=== PATIENT | female | born 1995 | race Caucasian/White ===

== ENCOUNTER 2016-09-22 23:24 | Emergency (ER) | payer OTHER ==
[~2016-09-22] VITALS: Ht 172.7 cm; Wt 54.4 kg
[2016-09-22] MEDS ORDERED: PREN1PAK PO (23:37)
--- NOTE | 2016-09-23 01:40 | REPUSA ---
CLINICAL HISTORY: Pelvic pain. TECHNIQUE: Realtime sonographic images were obtained in multiple projections via TA approach. The exa mination was performed by the entertainment production professional and still images were submitted for interpretation. COMMENTS: Single, live intrauterine gestation. Unable presentation. motion was identified. heart ra te 144 beats per minute. Posterior placenta. Low-lying versus placenta previa. No evidence of placent al abruption. Amniotic fluid appears within normal limits. No maternal adnexal abnormality is noted. Estimated gestational age is 15 weeks and one day. Estimated delivery date one 03/16/2017. Estimated f etal weight 113 g. IMPRESSION: Single, live intrauterine gestation. No abnormality is seen. Thank you for your kind referral of this patient.
[2016-09-23 02:51] VITALS: BP 112/56
== END 2016-09-23 02:53 | disposition home or self-care (01) ==
LOC: M ED 09-23 00:51
DX: O20.0 Threatened abortion (principal); Z79.899 Other long term (current) drug therapy; Z3A.15 15 weeks gestation of pregnancy
CPT/HCPCS: 36415; 76811; 86850; 86900; 86901; 99282; J2790

== ENCOUNTER 2016-11-17 16:54 | Outpatient (CLI) | payer OTHER ==
[~2016-11-17] VITALS: Ht 152.4 cm; Wt 55.0 kg
[~2016-11-17 16:54] MED LIST: PREN1PAK PO
[2016-11-17 17:13] VITALS: BP 103/67
[2016-11-17 17:18] VITALS: BP 108/72
[2016-11-17] MEDS ORDERED: LR 1,000 ML IV SCH (17:29)
[2016-11-17] MEDS ORDERED: NIFEdipine 10 MG CAP PO SCH (17:30)
[2016-11-17 17:44] VITALS: BP 109/58
[2016-11-17] MEDS ORDERED: LR 1,000 ML IV ONE (17:45)
[2016-11-17] MEDS: NIFEdipine 10 MG CAP PO SCH ×3 (17:55→18:37)
[2016-11-17] MEDS ORDERED: BETAMETHASONE SOLUSPAN 6MG/ML INJ 5ML (J0702) IM SCH (18:00)
[2016-11-17 18:17] LABS: MEAN CORPUSCULAR HGB CONC 35.6 g/dl (32.0-36.5); MEAN CORPUSCULAR VOLUME 89.6 fl (80.0-96.0); RED CELL DISTRIBUTION WIDTH 12.7 % (11.5-14.5)
[2016-11-17 18:37] VITALS: BP 111/56
--- NOTE | 2016-11-17 18:50 | REPUSA ---
OBSTETRICAL ULTRASOUND INDICATION: OB screening. FINDINGS: A single live intrauterine gestation was identified with a heart rate of 133 bpm. The amniotic fluid index was normal measuring 15.6 cm. The placenta was posterior, without evidence of p lacenta previa. The fetus was in a breech position. The cervix measures 4.6 cm in length and is close d. Systolic/diastolic ratio measures 4.34. Resistive index measures 0.77. A hypoechoic area in the po sterior uterus is noted, measuring 4.7 x 3.2 x 5.7 cm. IMPRESSION: 1. Single live intrauterine . 2. Amniotic fluid index is within normal limits. 3. Hypoechoic area within the uterus likely represents a placental wright. Follow-up is suggested only as clinically indicated.
[2016-11-18] MEDS ORDERED: ACET50TA PO (17:57)
[2016-11-18] MEDS ORDERED: ASPI81CH32 PO (17:57)
[2016-11-18] MEDS ORDERED: TUMS500C PO (17:57)
== END 2016-11-17 20:46 | disposition home or self-care (01) ==
LOC: M LDO 16:54
PROVIDERS: ATTEND Obstetrics & Gynecology
DX: O47.02 False labor before 37 completed weeks of gestation, second trimester (principal); Z3A.23 23 weeks gestation of pregnancy; R10.9 Unspecified abdominal pain
CPT/HCPCS: 59025; 76815; 80307; 85027; 86850; 86870; 86900; 86901; 87491; 87591; 96372; 96374; J0702

== ENCOUNTER 2016-11-18 17:50 | Outpatient (CLI) | payer OTHER ==
[2016-11-18] MEDS ORDERED: ACET50TA PO (17:57)
[2016-11-18] MEDS ORDERED: ASPI81CH32 PO (17:57)
[2016-11-18] MEDS ORDERED: TUMS500C PO (17:57)
[2016-11-18] MEDS ORDERED: BETAMETHASONE SOLUSPAN 6MG/ML INJ 5ML (J0702) IM SCH (18:30)
== END 2016-11-18 18:40 | disposition home or self-care (01) ==
LOC: M LDO 17:50
PROVIDERS: ATTEND Obstetrics & Gynecology
DX: O47.02 False labor before 37 completed weeks of gestation, second trimester (principal); Z3A.23 23 weeks gestation of pregnancy

== ENCOUNTER 2016-12-30 17:13 | Outpatient (CLI) | payer OTHER ==
[~2016-12-30] VITALS: Ht 152.4 cm; Wt 58.0 kg
[~2016-12-30 17:13] MED LIST changes: +ACET50TA PO; +ASPI81CH32 PO; +TUMS500C PO
[2016-12-30 17:27] VITALS: BP 104/59
[2016-12-30 18:04] VITALS: BP 118/67
--- NOTE | 2016-12-31 13:48 | HPE ---
DATE OF ADMISSION: 12/30/2016 This is a 21-year-old 3, para 1 who is at 29 weeks of gestation and comes in with a complaint of 3 days of abdominal pain and tenderness similar to what she had in November. She apparently called the office and they gave her an appointment for tomorrow. However, she was told that if the pain increases in intensity she is to come to labor and delivery. While she was here she was placed on the monitor and she was continually tightening her muscles in her abdomen indicating periodic type contractions because she said it hurt from her umbilicus to her xiphisternum and right to the back and the it shifted to the right and the left lower quadrant. She continued to do this for a significant period of time and we kept monitoring the patient for the same and eventually she stopped tightening or megan her abdomen, but she then subsequently started to vomit and once she vomited she felt better. She has had a history of being steroid complete query labor. She has had an ultrasound in the past which showed large placental lakes still concerning for abruption. She smokes 10 cigarettes per day which makes her high category risk for abruption. She suffers from post-traumatic stress disorder (PTSD) and anxiety and depression. She declines behavioral health and is on no medications. While here her vital signs - her blood pressure is 118/67, pulse was 20, respirations 113, temperature 97.0. Her urine 92875, +1 leukocytes. She was significantly upset that the provider was seeing a patient prior to seeing her and she elected to not see the provider and signed out against medical advice saying that she felt better and if she needs to she will come back and she was counseled to keep her appointment at the clinic. We have a 29 weeker, previous section with unexplained nausea and vomiting and abdominal discomfort, possibly positional, possibly still concerning for abruptio placenta. There was no vaginal loss or fluid and we eventually got a category 1 strip before discharge.
== END 2016-12-30 18:50 | disposition left against medical advice (07) ==
LOC: M LDO 17:13
PROVIDERS: ATTEND Obstetrics & Gynecology
DX: O99.89 Other specified diseases and conditions complicating pregnancy, childbirth and the puerperium (principal); R10.9 Unspecified abdominal pain; R11.2 Nausea with vomiting, unspecified; F43.10 Post-traumatic stress disorder, unspecified; F41.9 Anxiety disorder, unspecified; F32.9 Major depressive disorder, single episode, unspecified; Z3A.29 29 weeks gestation of pregnancy

== ENCOUNTER 2017-02-06 19:47 | Outpatient (CLI) | payer OTHER ==
[2017-02-06 20:05] VITALS: BP 90/59
== END 2017-02-06 21:35 | disposition home or self-care (01) ==
LOC: M LDO 19:47
PROVIDERS: ATTEND Obstetrics & Gynecology
DX: O47.03 False labor before 37 completed weeks of gestation, third trimester (principal); Z3A.34 34 weeks gestation of pregnancy; O99.343 Other mental disorders complicating pregnancy, third trimester; Z87.891 Personal history of nicotine dependence; F41.9 Anxiety disorder, unspecified; F32.9 Major depressive disorder, single episode, unspecified; F43.10 Post-traumatic stress disorder, unspecified

== ENCOUNTER 2017-02-21 03:43 | Inpatient (IN) | payer OTHER ==
[2017-02-21] VITALS (26 sets, daily range): BP systolic 83–127; BP diastolic 50–70
[~2017-02-21] VITALS: Ht 152.4 cm; Wt 63.0 kg
[2017-02-21] MEDS ORDERED: LACTATED RINGER'S 1000 ML IV STA ×2 (04:36→16:42)
[2017-02-21] MEDS ORDERED: PENICILLIN G POTASSIUM IV 5 MU in D5W MINI-BAG PLUS 100 ML IV STA (04:36)
[2017-02-21] MEDS ORDERED: LR 1,000 ML IV SCH (04:36)
[2017-02-21 05:04] LABS: MEAN CORPUSCULAR HEMOGLOBIN 27.8 pg (27.0-33.0); MEAN CORPUSCULAR VOLUME 84.2 fl (80.0-96.0); RED CELL DISTRIBUTION WIDTH 13.6 % (11.5-14.5); WHITE BLOOD COUNT 15.4 10^3/uL (4.0-10.0)
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
[2017-02-21] MEDS ORDERED: raNITIdine SYRUP 150 MG/10 ML UDC PO ONE (05:30)
[2017-02-21] MEDS ORDERED: OXYTOCIN DRIP 30 UNITS in APPROPRIATE DILUENT 1 EA IV SCH (05:45)
[2017-02-21] MEDS ORDERED: ACETAMINOPHEN 325 MG TAB PO ONE (05:45)
[2017-02-21] MEDS: PENICILLIN G POTASSIUM IV 2.5 MU in D5W 100 ML IV SCH ×2 (10:01→13:35)
--- NOTE | 2017-02-21 14:14 | IPNPDOC ---
Text Note Date of Service The patient was seen on 02/21/17. NOTE SBAR from MAJ Gifford TOLAC On 14 mu/min pitocin Cx //-3/vtx well applied Cont pitocin and recheck in ~6 hrs, sooner prn Sessions VS,Tierney, I+O VS, Tierney, I+O Laboratory Tests 02/21/17 04:56 Red Blood Count 3.92 L, Mean Corpuscular Volume 84.2, Mean Corpuscular Hemoglobin 27.8, Mean Corpuscular Hemoglobin Concent 33.0, Red Cell Distribution Width 13.6 Vital Signs Date Time Temp Pulse Resp B/P (MAP) Pulse Ox O2 Delivery O2 Flow Rate FiO2 02/21/17 06:48 97 18 112/55 (74) 02/21/17 04:06 98.3 SESSIONS,LACHO Escobar MD Feb 21, 2017 14:14
[2017-02-21] MEDS ORDERED: ceFAZolin 2 GM/D5W 50 ML IV BAG (J0690) As Ordered ONE (16:45)
[2017-02-21] MEDS ORDERED: BICITRA 30ML SOLN UDC As Ordered ONE (16:46)
--- NOTE | 2017-02-21 16:48 | IPNPDOC ---
Text Note Date of Service The patient was seen on 02/21/17. NOTE Pt requesting ERCS NST Cat 1 Cx unchanged, 1 cm/high/non-engaged Long talk with pt and she refuses to continue. I told her that as of now we do not have a clinical indication for ERCS other than her prior h/o a . This is enough, but I wanted to be very clear that this was entirely her decision. She agreed. Informed consent obtained and OR team notified. Ancef 2 gm IV, no need for azithro due to not in active labor and has only been SROM' d 15 hrs. Sessions VS,Tierney, I+O VSTierney I+O Laboratory Tests 02/21/17 04:56 Red Blood Count 3.92 L, Mean Corpuscular Volume 84.2, Mean Corpuscular Hemoglobin 27.8, Mean Corpuscular Hemoglobin Concent 33.0, Red Cell Distribution Width 13.6 Vital Signs Date Time Temp Pulse Resp B/P (MAP) Pulse Ox O2 Delivery O2 Flow Rate FiO2 02/21/17 06:48 97 18 112/55 (74) 02/21/17 04:06 98.3 SESSIONS,LACHO Escobar MD Feb 21, 2017 16:48
[2017-02-21] MEDS ORDERED: BICITRA 30ML SOLN UDC PO ONE (17:00)
[2017-02-21] MEDS ORDERED: MORPHINE PRES-FREE INJ 10 MG/10 ML VIAL (J2274) As Ordered ONE (17:04)
[2017-02-21] MEDS ORDERED: OXYTOCIN INJ 10 UNITS/ML VIAL (J2590) As Ordered ONE (17:04)
[2017-02-21] MEDS ORDERED: NALOXONE INJ 0.4 MG/1 ML VIAL (J2310) IV PRN ×2 (17:21)
[2017-02-21] MEDS ORDERED: ONDANSETRON 4MG/2ML VIAL (J2405) IV PRN ×2 (17:21→18:30)
[2017-02-21] MEDS ORDERED: METOCLOPRAMIDE INJ 10MG/2ML VIAL (J2765) IV PRN ×2 (17:21→18:30)
[2017-02-21] MEDS ORDERED: NALBUPHINE HCL 10 MG/ML AMP (J2300) IV PRN ×2 (17:21→18:30)
[2017-02-21] MEDS ORDERED: PHENYLephrine HCL 500 MCG/5 ML (100MCG/ML) SYRINGE (J2370) As Ordered ONE (17:26)
[2017-02-21] MEDS ORDERED: ePHEDrine SULFATE 25 MG/5 ML(5MG/ML) SYRINGE As Ordered ONE (17:28)
[2017-02-21] MEDS ORDERED: ONDANSETRON 4MG/2ML VIAL (J2405) As Ordered ONE (17:56)
[2017-02-21] MEDS: LR 1,000 ML IV SCH (18:28)
[2017-02-21] MEDS ORDERED: MEPERIDINE INJ 25 MG/ML VIAL (J2175) IV PRN (18:30)
[2017-02-21] MEDS ORDERED: MEASLES,MUMPS,RUBELLA VACCINE INJ (MMR-II) (90707) SC SCH (18:30)
[2017-02-21] MEDS ORDERED: KETOROLAC 30 MG/ML VIAL (J1885) IV PRN (18:30)
[2017-02-21] MEDS ORDERED: PERCOCET 5MG/325MG TAB PO PRN ×2 (18:30)
[2017-02-21] MEDS ORDERED: RHOGAM 300 MCG (1500 IU) INJ (J2790) IM SCH (18:30)
[2017-02-21] MEDS ORDERED: fentaNYL 100 MCG/2 ML INJECTION (J3010) IV PRN (18:30)
[2017-02-21] MEDS: KETOROLAC 30 MG/ML VIAL (J1885) IV SCH (20:00)
[2017-02-21] MEDS: DOCUSATE SODIUM 100 MG CAP PO SCH (21:00)
[2017-02-22] MEDS: KETOROLAC 30 MG/ML VIAL (J1885) IV SCH ×3 (01:59→13:37)
[2017-02-22 02:00] VITALS: BP 95/51
[2017-02-22] MEDS: LR 1,000 ML IV SCH ×3 (02:28→18:28)
[2017-02-22 06:00] VITALS: BP 105/58
[2017-02-22 06:59] LABS: MEAN CORPUSCULAR HEMOGLOBIN 27.5 pg (27.0-33.0); MEAN CORPUSCULAR HGB CONC 32.3 g/dl (32.0-36.5); MEAN CORPUSCULAR VOLUME 85.2 fl (80.0-96.0); RED CELL DISTRIBUTION WIDTH 13.6 % (11.5-14.5); WHITE BLOOD COUNT 12.8 10^3/uL (4.0-10.0)
--- NOTE | 2017-02-22 07:32 | RO ---
DATE OF PROCEDURE: 02/21/2017 PREOPERATIVE DIAGNOSES: Prior , declined further labor, spontaneous ruptured membranes approximately 15 hours prior. POSTOPERATIVE DIAGNOSES: Prior , declined further labor, spontaneous ruptured membranes approximately 15 hours prior. PROCEDURE: Elective repeat section. SURGEON: Dr. Mathew Subramanian WAITER/WAITRESS ROOM SERVICE: Dr. Jere Tang ANESTHESIA: Spinal. ESTIMATED BLOOD LOSS: 500 mL. DRAINS: 200 mL of clear urine, Madrid catheter. FLUID REPLACED: 1600 mL of lactated Ringer's. PREOPERATIVE ANTIBIOTICS: Ancef 2 grams IV. SPECIMENS: None. FINDINGS: Uncomplicated , scores 8 and 8, male , 2606 grams , 5 pounds 11 ounces. INDICATION: Patient was admitted the morning of 02/21/2017 after spontaneous rupture of membranes was confirmed. She had a history of prior , desired to have a trial of labor after . Her labor was uncomplicated; however, she failed to progress and stayed at 1 cm dilation throughout the day, and on her own volition, requested stopping labor and desired a repeat section. I counseled her that it was appropriate for her to continue laboring and there was no indication other than her prior to undergo elective repeat , and she adamantly declined further labor and wanted the repeat delivery. Informed consent was obtained, and the team was mobilized. DESCRIPTION OF PROCEDURE: Patient was taken to the operating room with an IV in place, and a spinal anesthetic was easily obtained. Madrid catheter was placed. Postspinal heart tones were normal. She was prepped and draped in normal sterile fashion. After testing to make sure the spinal was adequate, a Pfannenstiel skin incision over her prior incision was carried down to the layer of fascia, which was nicked in the midline and extended bilaterally the extent of the skin incision. The rectus muscles were dissected off superiorly and inferiorly. The fascia and the rectus muscles were in the midline. With successive spreading maneuvers using Afshan clamps, we identified the peritoneum, which was tended up, entered sharply with Metzenbaum scissors, and the uterine cavity was noted to be clear. We then did a stretching maneuver to create an adequate peritoneal window. Bladder blade was placed. Bladder flap was easily created, and a very thin low transverse uterine area was noted. Very carefully, made a uterine incision across the noncontractile portion of the uterus down to the layer of the amnion, at which time the amnion was grasped with an Allis clamp, tented up, and a small hole in the amnion was created; clear fluid noted. The uterine incision was stretched to adequacy. The was then delivered without difficulty with fundal pressure. The vigorous infant with good cry and good tone was noted. Cord was clamped times two and cut, and a cord sample was obtained. Infant was handed off to the waiting resuscitation team. Placenta was delivered with traction after Pitocin was started and the fundus was starting to firm. There were no retained membranes, and the uterus was delivered through the incision, wrapped in a warm sponge. Two dry sponges were used to clear the uterine cavity, and a running suture of 30 Vicryl from left to right was then used to close the hysterotomy in locked fashion. A #0 Monocryl was used to imbricate without difficulty. We irrigated behind the uterus and after hemostasis was confirmed at the hysterotomy site, the uterus was returned to the abdomen to its anatomical state. The paracolic gutters were irrigated bilaterally and cleared of all clots and debris. After confirming hemostasis, the peritoneum was closed from superior to inferior with #3-0 Vicryl. Rectus bellies were nonhemorrhagic. The fascia was then closed from left to right with a running suture of #0 Vicryl without difficulty. The subcutaneous tissue was reapproximated with a #3-0 Vicryl from left to right , and the skin was closed with a subcuticular #4-0 Monocryl without difficulty from left to right. Steri-Strips were placed over the incision and a pressure dressing as well. After the dressing was applied, I frog-legged the patient and the uterus was noted to be firm at U-2 and the vagina and cervix were cleared of all clots and debris with bimanual massage. The patient was transferred to the postanesthesia care unit (PACU) in stable condition. All counts, including instruments, needle , and sponges, were correct throughout the case. Edited: meryl 02/24/2017 1425 MTDD
[2017-02-22] MEDS: DOCUSATE SODIUM 100 MG CAP PO SCH ×2 (08:39→19:38)
--- NOTE | 2017-02-22 08:45 | IPNPDOC ---
Text Note Date of Service The patient was seen on 02/22/17. NOTE POD1 prog note States feeling well, no complaints. No heavy VB. Pain controlled. Bonding well with baby in NICU, visits often. Breast feeding. VSSAF CTAB RRR Ut at U-2, firm Ext no CCE Inc with bandage intact no strikethu UO adeq since , pinzon in place until ~noon a/p: Doing well. Routine Postop care. Sessions Tierney HUIZAR, I+O VSTierney I+O Laboratory Tests 02/22/17 06:48 Red Blood Count 3.71 L, Mean Corpuscular Volume 85.2, Mean Corpuscular Hemoglobin 27.5, Mean Corpuscular Hemoglobin Concent 32.3, Red Cell Distribution Width 13.6 Vital Signs Date Time Temp Pulse Resp B/P (MAP) Pulse Ox O2 Delivery O2 Flow Rate FiO2 02/22/17 06:00 97.0 89 18 105/58 (74) 99 Room Air SESSIONS,LACHO Escobar MD Feb 22, 2017 08:45
[2017-02-22] MEDS ORDERED: PRENATAL VITAMINS CHEWABLE TABLET PO SCH (09:00)
[2017-02-22 10:00] VITALS: BP 106/59
[2017-02-22 14:00] VITALS: BP 107/58
[2017-02-22 18:00] VITALS: BP 102/64
[2017-02-22] MEDS: IBUPROFEN 800 MG TAB PO SCH (22:02)
[2017-02-23] MEDS: LR 1,000 ML IV SCH (02:28)
[2017-02-23] MEDS: IBUPROFEN 800 MG TAB PO SCH (05:11)
[2017-02-23 06:00] VITALS: BP 108/67
[2017-02-23] MEDS ORDERED: PREN1PAK PO (07:46)
--- NOTE | 2017-02-23 08:06 | IPNPDOC ---
Text Note Date of Service The patient was seen on 02/23/17. NOTE POD2 prog note States feeling well, no complaints. No heavy VB. Pain controlled. Bonding well with baby in NICU, visits often. Breast feeding. VSSAF CTAB RRR Ut at U-2, firm Ext no CCE Inc CDI a/p: Doing well. Discharge. Sessions VS,Tierney, I+O VS, Tierney, I+O Vital Signs Date Time Temp Pulse Resp B/P (MAP) Pulse Ox O2 Delivery O2 Flow Rate FiO2 02/23/17 06:00 98.5 79 18 108/67 (81) 100 Room Air SESSIONS,LACHO Escobar MD Feb 23, 2017 08:06
--- NOTE | 2017-02-23 08:14 | IPNPDOC ---
Text Note Date of Service The patient was seen on 02/23/17. NOTE PROCEDURES PERFORMED DURING STAY: Elective Repeat Delivery ADMITTING DIAGNOSIS: 1. Prior 2. Ruptured membranes DISCHARGE DIAGNOSES: 1. Healthy HOSPITAL COURSE: Admitted for SROM, desired to TOLAC but changed her mind after >12 hours of labor. Uncomplicated, see operative note. DISCHARGE MEDICATIONS: Motrin, Percocet, Colace, Nor QD Physical exam: see note from this morning LABORATORY DATA: Please see below. ACTIVITY: as tolerated. Nothing in vagina for 6 weeks. No bathing for 4 weeks. No driving for 2 weeks. DIET: regular DISPOSITION:stable TIME SPENT ON DISCHARGE: Greater than 15 minutes. Sessions VS,Tierney, I+O VSTierney I+O Vital Signs Date Time Temp Pulse Resp B/P (MAP) Pulse Ox O2 Delivery O2 Flow Rate FiO2 02/23/17 06:00 98.5 79 18 108/67 (81) 100 Room Air SESSIONS,LACHO Escobar MD Feb 23, 2017 08:13
--- NOTE | 2017-02-23 08:19 | DS.PDOC ---
Discharge Summary General Date of Admission Feb 21, 2017 at 03:58 Date of Discharge [id number] Discharge Summary PROCEDURES PERFORMED DURING STAY: Elective Repeat Delivery ADMITTING DIAGNOSIS: 1. Prior 2. Ruptured membranes DISCHARGE DIAGNOSES: 1. Healthy infant HOSPITAL COURSE: Admitted for SROM, desired to TOLAC but changed her mind after >12 hours of labor. Uncomplicated, see operative note. DISCHARGE MEDICATIONS: Motrin, Percocet, Colace, Nor QD Physical exam: see note from this morning LABORATORY DATA: Please see below. ACTIVITY: as tolerated. Nothing in vagina for 6 weeks. No bathing for 4 weeks. No driving for 2 weeks. DIET: regular DISPOSITION:stable TIME SPENT ON DISCHARGE: Greater than 15 minutes. Sessions Vital Signs/I&Os Vital Signs Date Time Temp Pulse Resp B/P (MAP) Pulse Ox O2 Delivery O2 Flow Rate FiO2 02/23/17 06:00 98.5 79 18 108/67 (81) 100 Room Air Discharge Medications Scheduled ( + Complete Multi 0.267 & 373 mg) 1 Jessie Jessie, 3 JESSIE PO DAILY, (Reported ) Miscellaneous Medications ( + Complete Multi 0.267 & 373 mg) 1 Jessie Jessie, 1 JESSIE PO, (Reported) (Aspirin 81 Low Dose) 81 Mg Chw, 81 MG PO, (Reported) Calcium Carbonate (Tums) 500 Mg Chw, 500 MG PO, (Reported) Allergies Coded Allergies: No Known Allergies (Unverified , 11/18/16) SESSIONS,LACHO Escobar MD Feb 23, 2017 08:19
[2017-02-23] MEDS ORDERED: IBUP-1114 PO (08:34)
[2017-02-23] MEDS ORDERED: OXYC1TAB23 PO (08:34)
[2017-02-23] MEDS ORDERED: COLA100C5 PO (08:34)
== END 2017-02-23 09:50 | disposition home or self-care (01) | DRG 766 ==
LOC: M LDO 03:43 → M LDI 03:58 → M OBS 19:48
PROVIDERS: ADMIT Midwife; ATTEND Midwife
PROC: 10D00Z1 Extraction of Products of Conception, Low, Open Approach (ICD-10-PCS; principal; 2017-02-22)
DX: O42.02 Full-term premature rupture of membranes, onset of labor within 24 hours of rupture (principal); Z37.0 Single live birth; Z3A.36 36 weeks gestation of pregnancy; F17.210 Nicotine dependence, cigarettes, uncomplicated; O99.334 Smoking (tobacco) complicating childbirth; Z62.810 Personal history of physical and sexual abuse in childhood; K21.9 Gastro-esophageal reflux disease without esophagitis; O99.62 Diseases of the digestive system complicating childbirth; O34.211 Maternal care for low transverse scar from previous cesarean delivery

== ENCOUNTER → 2017-11-29 | Outpatient (REF) | payer OTHER ==
[2017-11-29 22:38] LABS: CHLAMYDIA DNA AMPLIFICATION NEGATIVE (NEGATIVE); GC DNA AMPLIFICATION NEGATIVE (NEGATIVE)
== END ==
LOC: M SFHCLERA 13:28
DX: R30.0 Dysuria (principal)

== ENCOUNTER 2018-12-04 17:58 | Emergency (ER) | payer OTHER ==
[~2018-12-04] VITALS: Ht 152.4 cm; Wt 54.5 kg
[~2018-12-04 17:58] MED LIST changes: -ACET50TA PO; -ASPI81CH32 PO; +ASPI81CH33 PO; +COLA100C5 PO; +IBUP-1114 PO; +MAPA500T2 PO; +OXYC1TAB23 PO
[2018-12-04 19:33] LABS: BASO % 0.3 % (0.0-1.0); EOS # 0.2 10^3/uL (0.0-0.50); EOS % 1.8 % (0.0-3.0); HEMATOCRIT 40.1 % (36.0-47.0); HEMOGLOBIN 13.6 g/dl (12.0-15.5); LYMPH # 2.5 10^3/uL (1.5-6.5); LYMPH % 22.4 % (24.0-44.0); MEAN CORPUSCULAR HEMOGLOBIN 29.7 pg (27.0-33.0); MEAN CORPUSCULAR HGB CONC 33.9 g/dl (32.0-36.5); MEAN CORPUSCULAR VOLUME 87.6 fl (80.0-96.0); MONO # 0.7 10^3/uL (0.0-0.8); MONO % 6.1 % (0.0-5.0); NEUTROPHILS # 7.6 10^3/uL (1.8-7.7); NEUTROPHILS % 69.1 % (36.0-66.0); PLATELET COUNT, AUTOMATED 243 10^3/uL (150-450); RED BLOOD COUNT 4.58 10^6/uL (4.00-5.40)
[2018-12-04 20:16] LABS: ALBUMIN 3.8 GM/DL (3.2-5.2); ALT/SGPT 18 U/L (12-78); BILIRUBIN,TOTAL 0.3 MG/DL (0.2-1.0); BLOOD UREA NITROGEN 11 MG/DL (7-18); CALCIUM LEVEL 9.2 MG/DL (8.5-10.1); CARBON DIOXIDE LEVEL 24 MEQ/L (21-32); CHLORIDE LEVEL 109 MEQ/L (98-107); CREATININE FOR GFR 0.65 MG/DL (0.55-1.30); FREE T4 0.93 NG/DL (0.76-1.46); GLOMERULAR FILTRATION RATE > 60.0 (>60); GLUCOSE, FASTING 81 MG/DL (70-100); MAGNESIUM LEVEL 2.3 MG/DL (1.8-2.4); POTASSIUM SERUM 3.9 MEQ/L (3.5-5.1); SODIUM LEVEL 140 MEQ/L (136-145); TOTAL PROTEIN 7.2 GM/DL (6.4-8.2)
[2018-12-04 20:58] VITALS: BP 101/58
--- NOTE | 2018-12-04 21:15 | REPVR ---
EXAM: CT Head Without Contrast EXAM DATE/TIME: 12/04/2018 8:48 PM CLINICAL HISTORY: 23 years old, female; Syncope and collapse TECHNIQUE: Imaging protocol: Computed tomography images of the head without contrast. Radiation optimization: All CT scans at this facility use at least one of these dose optimization techniques: automated exposure control; mA and/or kV adjustment per patient size (includes targeted exams where dose is matched to clinical indication); or iterative reconstruction. COMPARISON: No relevant prior studies available. FINDINGS: Brain: Normal. No hemorrhage. Unremarkable white matter. No mass effect. Ventricles: Normal. No ventriculomegaly. Bones/joints: Unremarkable. No acute fracture. Sinuses: Visualized sinuses are unremarkable. No fluid levels. Mastoid air cells: Visualized mastoid air cells are well aerated. No mastoid effusion. Soft tissues: Unremarkable. IMPRESSION: Negative noncontrast head CT. Electronically signed by: Renan Ramirez On 12/04/2018 21:15:33 PM
[2018-12-04] MEDS ORDERED: CIPR-249 PO (21:34)
--- NOTE | 2018-12-04 21:35 | ECGEPIP ---
[facility] - ED Test Date: 2018-12-04 Pat Name: CARMELO SIERRA Department: Room: - Gender: Female Client Liaison: STORMY : 1995 Requested By: HARRY MORENO PA-C. Order Number: [id number] Reading MD: Noemí Romero Measurements Intervals [place] Rate: 84 P: 41 PA: 148 QRS: 20 QRSD: 88 T: 42 QT: 344 QTc: 407 Interpretive Statements SINUS RHYTHM WITH SINUS ARRHYTHMIA NO PRIOR Electronically Signed on 12-04-2018 21:35:09 EDT by Noemí Romero
== END 2018-12-04 22:10 | disposition home or self-care (01) ==
LOC: M ED 17:58
DX: R55 Syncope and collapse (principal); N39.0 Urinary tract infection, site not specified; F41.9 Anxiety disorder, unspecified; F32.9 Major depressive disorder, single episode, unspecified; F43.10 Post-traumatic stress disorder, unspecified; Z72.0 Tobacco use

== ENCOUNTER → 2019-01-20 | Outpatient (CLI) | payer OTHER ==
[~2019-01-20] MED LIST changes: +CIPR-249 PO
[2019-01-20 16:39] LABS: BASO % 0.3 % (0.0-1.0); EOS # 0.2 10^3/uL (0.0-0.5); EOS % 1.6 % (0.0-3.0); HEMATOCRIT 44.5 % (36.0-47.0); HEMOGLOBIN 14.7 g/dl (12.0-15.5); LYMPH # 2.7 10^3/uL (1.5-5.0); LYMPH % 29.5 % (24.0-44.0); MEAN CORPUSCULAR HEMOGLOBIN 30.1 pg (27.0-33.0); MONO # 0.6 10^3/uL (0.0-0.8); MONO % 6.2 % (0.0-5.0); NEUTROPHILS # 5.7 10^3/uL (1.5-8.5); PLATELET COUNT, AUTOMATED 263 10^3/uL (150-450); RED BLOOD COUNT 4.89 10^6/uL (4.00-5.40); WHITE BLOOD COUNT 9.2 10^3/uL (4.0-10.0)
[2019-01-20 16:46] LABS: ALBUMIN 4.1 GM/DL (3.2-5.2); ALT/SGPT 17 U/L (12-78); BILIRUBIN,TOTAL 0.3 MG/DL (0.2-1.0); BLOOD UREA NITROGEN 11 MG/DL (7-18); CALCIUM LEVEL 9.4 MG/DL (8.5-10.1); CARBON DIOXIDE LEVEL 22 MEQ/L (21-32); CHLORIDE LEVEL 109 MEQ/L (98-107); CREATININE FOR GFR 0.82 MG/DL (0.55-1.30); GLOMERULAR FILTRATION RATE > 60.0 (>60); GLUCOSE, FASTING 73 MG/DL (70-100); HCG, SERUM QUANTITATIVE < 1.0 MIU/ML; POTASSIUM SERUM 4.6 MEQ/L (3.5-5.1); SODIUM LEVEL 139 MEQ/L (136-145); TOTAL PROTEIN 7.6 GM/DL (6.4-8.2)
== END ==
LOC: M WUC 13:22
PROVIDERS: ATTEND Nurse Practitioner Family
DX: N93.8 Other specified abnormal uterine and vaginal bleeding (principal)

== ENCOUNTER 2020-07-23 13:43 | Emergency (ER) | payer OTHER ==
[~2020-07-23] VITALS: Ht 157.5 cm; Wt 62.2 kg
[2020-07-23] MEDS ORDERED: NEXP1IMP SC (13:58)
[2020-07-23] MEDS ORDERED: GABA-1171 PO (14:34)
[2020-07-23 15:04] VITALS: BP 113/60
[2020-07-23] MEDS ORDERED: ERYT5OIN25 OD (17:07)
== END 2020-07-23 15:10 | disposition home or self-care (01) ==
LOC: M ED 13:43
DX: M54.42 Lumbago with sciatica, left side (principal); F43.10 Post-traumatic stress disorder, unspecified; F41.9 Anxiety disorder, unspecified; F31.89 Other bipolar disorder; F17.200 Nicotine dependence, unspecified, uncomplicated; F12.10 Cannabis abuse, uncomplicated

== ENCOUNTER 2021-08-18 14:49 | Emergency (ER) | payer OTHER ==
[~2021-08-18] VITALS: Ht 157.5 cm; Wt 70.0 kg
[~2021-08-18 14:49] MED LIST changes: +ERYT5OIN25 OD; +GABA-1171 PO; +NEXP1IMP SC
[2021-08-18 14:55] VITALS: BP 120/77
[2021-08-18 15:49] LABS: BASO # 0.1 10^3/uL (0.0-0.2); BASO % 0.5 % (0.0-1.0); EOS # 0.2 10^3/uL (0.0-0.5); EOS % 1.7 % (0.0-3.0); HEMATOCRIT 46.5 % (36.0-47.0); HEMOGLOBIN 15.8 g/dl (12.0-15.5); MEAN CORPUSCULAR HEMOGLOBIN 30.8 pg (27.0-33.0); MEAN CORPUSCULAR VOLUME 90.6 fl (80.0-96.0); MONO # 0.5 10^3/uL (0.0-0.8); MONO % 5.1 % (2.0-8.0); NEUTROPHILS # 5.7 10^3/uL (1.5-8.5); NEUTROPHILS % 60.3 % (36.0-66.0); PLATELET COUNT, AUTOMATED 276 10^3/uL (150-450); RED BLOOD COUNT 5.13 10^6/uL (4.00-5.40); WHITE BLOOD COUNT 9.5 10^3/uL (4.0-10.0)
[2021-08-18 16:16] LABS: HCG, SERUM QUALITATIVE NEGATIVE (NEGATIVE)
[2021-08-18 16:18] LABS: ALBUMIN 3.8 GM/DL (3.2-5.2); ALT/SGPT 38 U/L (12-78); BILIRUBIN,DIRECT 0.1 MG/DL (0.0-0.2); BILIRUBIN,TOTAL 0.3 MG/DL (0.2-1.0); BLOOD UREA NITROGEN 7 MG/DL (7-18); CALCIUM LEVEL 9.2 MG/DL (8.5-10.1); CARBON DIOXIDE LEVEL 23 MEQ/L (21-32); CHLORIDE LEVEL 111 MEQ/L (98-107); CREATININE FOR GFR 0.69 MG/DL (0.55-1.30); GLOMERULAR FILTRATION RATE > 60.0 (>60); GLUCOSE, FASTING 90 MG/DL (70-100); LIPASE 72 U/L (73-393); POTASSIUM SERUM 4.3 MEQ/L (3.5-5.1); SODIUM LEVEL 140 MEQ/L (136-145); TOTAL PROTEIN 7.4 GM/DL (6.4-8.2)
== END 2021-08-18 16:00 | disposition left against medical advice (07) ==
LOC: M ED 14:49
DX: Z53.21 Procedure and treatment not carried out due to patient leaving prior to being seen by health care provider (principal)

== ENCOUNTER 2023-03-04 07:27 | Emergency (ER) | payer OTHER ==
[~2023-03-04] VITALS: Ht 157.5 cm; Wt 67.3 kg
[~2023-03-04 07:27] MED LIST changes: +ETON68IM SC; -NEXP1IMP SC
[2023-03-04] MEDS ORDERED: BENZONATATE 100MG CAPSULE PO ONE (08:10)
[2023-03-04] MEDS ORDERED: KETOROLAC 60MG 2ML VIAL IM ONE (08:10)
[2023-03-04] MEDS ORDERED: CVS500TA35 PO (09:07)
[2023-03-04] MEDS ORDERED: BENZ200C70 PO (09:07)
[2023-03-04] MEDS ORDERED: PSEU120T19 PO (09:07)
[2023-03-04] MEDS ORDERED: NAPR-837 PO (09:07)
[2023-03-04 09:15] VITALS: BP 115/76; TEMP 97.6; O2SAT 97
== END 2023-03-04 09:35 | disposition home or self-care (01) ==
LOC: M ED 07:27
DX: R09.81 Nasal congestion (principal); R05.9 Cough, unspecified; M54.2 Cervicalgia; M79.10 Myalgia, unspecified site; F17.200 Nicotine dependence, unspecified, uncomplicated
CPT/HCPCS: 71045; 87400; 87426; 96372; 99283; J1885

== ENCOUNTER 2023-05-04 12:29 | Emergency (ER) | payer OTHER ==
[~2023-05-04] VITALS: Ht 157.5 cm; Wt 64.9 kg
[~2023-05-04 12:29] MED LIST changes: +BENZ200C70 PO; +CVS500TA35 PO; +NAPR-837 PO; +PSEU120T19 PO
[2023-05-04] MEDS ORDERED: MORPHINE 4 MG/ML 1ML VIAL IV ONE (13:40)
[2023-05-04 14:13] LABS: BASO # 0.1 10^3/uL (0.0-0.2); BASO % 0.5 % (0.0-1.0); EOS # 0.2 10^3/uL (0.0-0.5); HEMATOCRIT 45.1 % (36.0-47.0); HEMOGLOBIN 15.5 g/dl (12.0-15.5); LYMPH # 3.2 10^3/uL (1.5-5.0); MEAN CORPUSCULAR HEMOGLOBIN 30.8 pg (27.0-33.0); MEAN CORPUSCULAR HGB CONC 34.4 g/dl (32.0-36.5); MEAN CORPUSCULAR VOLUME 89.5 fl (80.0-96.0); MONO # 0.5 10^3/uL (0.0-0.8); MONO % 4.7 % (2.0-8.0); NEUTROPHILS # 7.1 10^3/uL (1.5-8.5); NEUTROPHILS % 63.4 % (36.0-66.0); PLATELET COUNT, AUTOMATED 266 10^3/uL (150-450); RED BLOOD COUNT 5.04 10^6/uL (4.00-5.40); WHITE BLOOD COUNT 11.2 10^3/uL (4.0-10.0)
[2023-05-04 14:16] LABS: APPEARANCE, URINE MANUAL CLEAR (CLEAR); COLOR, URINE MANUAL YELLOW (YELLOW); PH,URINE MAN 8.5 UNITS (5.0 - 7.0)
[2023-05-04 14:17] LABS: BILIRUBIN, URINE MANUAL NEGATIVE (NEGATIVE); BLOOD URINE MANUAL NEGATIVE (NEGATIVE); GLUCOSE, URINE (UA) MANUAL NEGATIVE (NEGATIVE); KETONE, URINE MANUAL NEGATIVE (NEGATIVE); LEUKOCYTE ESTERASE, URINE MAN NEGATIVE (NEGATIVE); NITRITE, URINE MANUAL NEGATIVE (NEGATIVE); PROTEIN, URINE MANUAL NEGATIVE (NEGATIVE); UROBILINOGEN, URINE MANUAL NORMAL (NORMAL)
[2023-05-04 14:27] LABS: INR 1.13; PROTHROMBIN TIME 14.2 SECONDS (12.5-14.5)
[2023-05-04 14:28] LABS: PARTIAL THROMBOPLASTIN TIME 31.7 SECONDS (24.8-34.2)
[2023-05-04 14:36] LABS: HCG, SERUM QUALITATIVE NEGATIVE (NEGATIVE)
[2023-05-04 14:37] LABS: C REACTIVE PROTEIN QUANTITATIV < 0.40 MG/DL (<1.0)
[2023-05-04 14:38] LABS: AMYLASE 49 U/L (30-118)
[2023-05-04 14:39] LABS: ALBUMIN 4.2 G/DL (3.2-5.2); ALKALINE PHOSPHATASE 66 U/L (46-116); ALT/SGPT 16 U/L (7.0-40); AST/SGOT 14 U/L (<34); BILIRUBIN,DIRECT 0.2 MG/DL (<0.4); BILIRUBIN,TOTAL 0.4 MG/DL (0.3-1.2); BLOOD UREA NITROGEN 6 MG/DL (9-23); CALCIUM LEVEL 9.7 MG/DL (8.5-10.1); CARBON DIOXIDE LEVEL 23 MMOL/L (20-31); CHLORIDE LEVEL 110 MMOL/L (98-107); CK-MB VALUE MASS < 1.0 NG/ML (<3.6); CPK CREATINE PHOSPHOKINASE 67 U/L (34-145); CREATININE FOR GFR 0.73 MG/DL (0.55-1.30); GLOMERULAR FILTRATION RATE > 60.0 (>60); GLUCOSE, FASTING 100 MG/DL (60-100); MB/CK RELATIVE INDEX 1.49 (< OR =4); SODIUM LEVEL 138 MMOL/L (136-145); TOTAL PROTEIN 7.4 G/DL (5.7-8.2)
[2023-05-04 15:10] LABS: ERYTHROCYTE SEDIMENTATION RATE 20 mm/hr (0-20)
[2023-05-04 15:28] LABS: PROCALCITONIN <0.04 ng/ml
[2023-05-04 18:20] VITALS: BP 109/74; TEMP 97.5; O2SAT 97
== END 2023-05-04 18:30 | disposition left against medical advice (07) ==
LOC: M ED 12:29
DX: M54.50 Low back pain, unspecified (principal); D64.9 Anemia, unspecified; F43.10 Post-traumatic stress disorder, unspecified; F31.9 Bipolar disorder, unspecified; F41.9 Anxiety disorder, unspecified; F17.200 Nicotine dependence, unspecified, uncomplicated; F10.10 Alcohol abuse, uncomplicated; F12.10 Cannabis abuse, uncomplicated; Z79.1 Long term (current) use of non-steroidal anti-inflammatories (NSAID); Z79.899 Other long term (current) drug therapy; Z53.9 Procedure and treatment not carried out, unspecified reason

== ENCOUNTER 2023-10-05 12:17 | Emergency (ER) | payer OTHER ==
[~2023-10-05] VITALS: Ht 157.5 cm; Wt 65.2 kg
[2023-10-05] MEDS ORDERED: HYDR-3363 PO (12:32)
[2023-10-05] MEDS ORDERED: GABA-282 PO (12:32)
[2023-10-05] MEDS: dexAMETHasone 20MG/5ML VIAL IV ONE (17:01)
[2023-10-05] MEDS: KETOROLAC 30 MG/ML 1ML VIAL IV ONE (17:02)
[2023-10-05] MEDS: GABAPENTIN 300 MG CAP PO ONE (17:02)
[2023-10-05 17:58] VITALS: BP 113/75; TEMP 97.4; O2SAT 97
[2023-10-05] MEDS ORDERED: METH-1164 PO (19:07)
[2023-10-05] MEDS ORDERED: NAPR-837 PO (19:07)
== END 2023-10-05 19:21 | disposition home or self-care (01) ==
LOC: M ED 12:17
DX: M62.830 Muscle spasm of back (principal); R20.2 Paresthesia of skin; F41.9 Anxiety disorder, unspecified; F32.A Depression, unspecified; F17.210 Nicotine dependence, cigarettes, uncomplicated; F12.10 Cannabis abuse, uncomplicated; Z79.899 Other long term (current) drug therapy
CPT/HCPCS: 72125; 80047; 84702; 96374; 96375; 99284; J1100; J1885

== ENCOUNTER 2024-01-12 10:30 | Emergency (ER) | payer OTHER ==
[~2024-01-12] VITALS: Ht 154.9 cm; Wt 66.1 kg
[~2024-01-12 10:30] MED LIST changes: +GABA-282 PO; +HYDR-3363 PO; +METH-1164 PO
[2024-01-12] MEDS ORDERED: ISOVUE-370 76% 100ML VIAL As Ordered ONE (12:26)
[2024-01-12 12:38] LABS: BASO # 0.1 10^3/uL (0.0-0.2); BASO % 0.6 % (0.0-1.0); EOS # 0.1 10^3/uL (0.0-0.5); EOS % 1.1 % (0.0-3.0); HEMATOCRIT 44.5 % (36.0-47.0); HEMOGLOBIN 15.2 g/dl (12.0-15.5); LYMPH # 2.4 10^3/uL (1.5-5.0); LYMPH % 24.4 % (24.0-44.0); MEAN CORPUSCULAR HGB CONC 34.2 g/dl (32.0-36.5); MEAN CORPUSCULAR VOLUME 90.6 fl (80.0-96.0); MONO # 0.5 10^3/uL (0.0-0.8); NEUTROPHILS # 6.7 10^3/uL (1.5-8.5); NEUTROPHILS % 68.5 % (36.0-66.0); PLATELET COUNT, AUTOMATED 244 10^3/uL (150-450); RED BLOOD COUNT 4.91 10^6/uL (4.00-5.40); WHITE BLOOD COUNT 9.8 10^3/uL (4.0-10.0)
[2024-01-12] MEDS: diphenhydrAMINE 50MG/ML VIAL IV ONE (12:40)
[2024-01-12] MEDS: PROCHLORPERAZINE 10MG 2ML VIAL IV ONE (12:41)
[2024-01-12] MEDS: KETOROLAC 30 MG/ML 1ML VIAL IV ONE (12:41)
[2024-01-12] MEDS: NS 1,000 ML IV ONE (12:46)
[2024-01-12 13:02] LABS: ALBUMIN 3.9 G/DL (3.2-5.2); ALKALINE PHOSPHATASE 62 U/L (46-116); ALT/SGPT 14 U/L (7.0-40); AST/SGOT 15 U/L (<34); BILIRUBIN,TOTAL 0.3 MG/DL (0.3-1.2); BLOOD UREA NITROGEN 10 MG/DL (9-23); CALCIUM LEVEL 10.2 MG/DL (8.5-10.1); CARBON DIOXIDE LEVEL 25 MMOL/L (20-31); CHLORIDE LEVEL 112 MMOL/L (98-107); GLOMERULAR FILTRATION RATE > 60.0 (>60); GLUCOSE, FASTING 88 MG/DL (60-100); POTASSIUM SERUM 4.6 MMOL/L (3.5-5.1); SODIUM LEVEL 140 MMOL/L (136-145); TOTAL PROTEIN 7.1 G/DL (5.7-8.2)
[2024-01-12 13:04] LABS: HCG, SERUM QUALITATIVE NEGATIVE (NEGATIVE)
[2024-01-12 13:42] VITALS: BP 109/58; TEMP 97.2; O2SAT 100
== END 2024-01-12 14:03 | disposition home or self-care (01) ==
LOC: M ED 10:30
DX: R51.9 Headache, unspecified (principal); F43.10 Post-traumatic stress disorder, unspecified; F31.9 Bipolar disorder, unspecified; F41.9 Anxiety disorder, unspecified; F32.A Depression, unspecified; D64.9 Anemia, unspecified; F17.200 Nicotine dependence, unspecified, uncomplicated; F12.10 Cannabis abuse, uncomplicated; Z91.048 Other nonmedicinal substance allergy status; Z79.52 Long term (current) use of systemic steroids
CPT/HCPCS: 70450; 70496; 70498; 72125; 80047; 80053; 84703; 85025; 96361; 96374; 96375; 99284; J0780; J1200; J1885; Q9967

== ENCOUNTER 2024-02-09 13:57 | Emergency (ER) | payer OTHER ==
[~2024-02-09] VITALS: Ht 157.5 cm; Wt 65.7 kg
[~2024-02-09 13:57] MED LIST changes: +GABA-1172 PO; -GABA-282 PO
[2024-02-09 14:00] VITALS: BP 133/83; TEMP 97.4; O2SAT 97
== END 2024-02-09 15:00 | disposition left against medical advice (07) ==
LOC: M ED 13:57
DX: Z53.21 Procedure and treatment not carried out due to patient leaving prior to being seen by health care provider (principal)

== ENCOUNTER → 2024-02-29 | Outpatient (REF) | payer OTHER ==
[2024-02-29 13:24] LABS: APPEARANCE, URINE CLEAR (CLEAR); BACTERIA, URINE AUTO NEGATIVE (NEGATIVE); BILIRUBIN, URINE AUTO NEGATIVE (NEGATIVE); BLOOD, URINE BLOOD NEGATIVE (NEGATIVE); COLOR, URINE STRAW (YELLOW); GLUCOSE, URINE (UA) AUTO NEGATIVE (NEGATIVE); KETONE, URINE AUTO NEGATIVE (NEGATIVE); LEUKOCYTE ESTERASE, URINE AUTO NEGATIVE (NEGATIVE); NITRITE, URINE AUTO NEGATIVE (NEGATIVE); PROTEIN, URINE AUTO NEGATIVE (NEGATIVE); RBC, URINE AUTO 0 /HPF (0-3); SPECIFIC GRAVITY URINE AUTO 1.006 (1.002-1.035); SQUAMOUS EPITHELIAL CELL UR AU 1 /HPF (0-6); UROBILINOGEN, URINE AUTO 0.2 mg/dL (0.0-2.0); WBC, URINE AUTO 0 /HPF (0-3)
[2024-02-29 16:21] LABS: CREATININE,RANDOM URINE 22.6 MG/DL
[2024-02-29 16:23] LABS: TOTAL PROTEIN,RANDOM URINE < 6.0 MG/DL (0.0-14.0)
[2024-02-29 16:53] LABS: FREE T4 1.32 NG/DL (0.89-1.76); THYROID STIMULATING HORMONE 2.103 uIU/ML (0.55-4.78); TOTAL IRON BINDING CAPACITY 297 UG/DL (250-425)
[2024-02-29 16:54] LABS: C REACTIVE PROTEIN QUANTITATIV < 0.40 MG/DL (<1.0); CPK CREATINE PHOSPHOKINASE 44 U/L (34-145); FERRITIN 48.7 NG/ML (7.3-270.7); TOTAL 25(OH) VITAMIN D 21.5 NG/ML (20.0-100.0)
[2024-02-29 16:55] LABS: FOLATE 11.67 NG/ML (>5.4); VITAMIN B12 LEVEL 464 PG/ML (211-911)
[2024-02-29 16:56] LABS: ALBUMIN 3.8 G/DL (3.2-5.2); ALKALINE PHOSPHATASE 87 U/L (46-116); ALT/SGPT 16 U/L (7.0-40); AST/SGOT 11 U/L (<34); BILIRUBIN,DIRECT < 0.1 MG/DL (<0.4); BILIRUBIN,TOTAL 0.3 MG/DL (0.3-1.2); BLOOD UREA NITROGEN 12 MG/DL (9-23); CALCIUM LEVEL 9.7 MG/DL (8.5-10.1); CARBON DIOXIDE LEVEL 20 MMOL/L (20-31); CHLORIDE LEVEL 111 MMOL/L (98-107); CREATININE FOR GFR 0.69 MG/DL (0.55-1.30); GLOMERULAR FILTRATION RATE > 60.0 (>60); GLUCOSE, FASTING 68 MG/DL (60-100); IRON (FE) 62 UG/DL (50-170); MAGNESIUM LEVEL 2.2 MG/DL (1.8-2.4); PERCENT SATURATION 20.9 % (13.2-45.0); PHOSPHORUS LEVEL 3.4 MG/DL (2.5-4.9); POTASSIUM SERUM 3.8 MMOL/L (3.5-5.1); SODIUM LEVEL 141 MMOL/L (136-145); TOTAL PROTEIN 7.3 G/DL (5.7-8.2)
[2024-02-29 18:58] LABS: COMPLEMENT C3 142.1 MG/DL (82.0-160.0); COMPLEMENT C4 28.9 MG/DL (12-36); IMMUNOGLOBULIN A 142.6 MG/DL (40-350); IMMUNOGLOBULIN G 1065 MG/DL (650-1600)
[2024-03-01 09:48] LABS: T P ELECTROPHORESIS SO 7.3 g/dL (6.1-8.1)
[2024-03-01 15:17] LABS: EBV VIRAL CAPSID AG IGM < 36.00 U/mL (<36.00)
== END ==
LOC: M SFHCRHEU 09:11
PROVIDERS: ATTEND Internal Medicine
DX: R76.8 Other specified abnormal immunological findings in serum (principal); M25.40 Effusion, unspecified joint; B99.9 Unspecified infectious disease; R53.83 Other fatigue; M79.10 Myalgia, unspecified site

== ENCOUNTER → 2024-04-17 | Outpatient (CLI) | payer OTHER | LOC: M SLEEP HO 11:06 | PROVIDERS: ATTEND Internal Medicine | DX: G47.33 Obstructive sleep apnea (adult) (pediatric) (principal) ==

== ENCOUNTER → 2024-06-29 | Outpatient (CLI) | payer OTHER | LOC: M PLARAD 08:54 | PROVIDERS: ATTEND Internal Medicine | DX: M79.641 Pain in right hand (principal); M79.642 Pain in left hand ==

== ENCOUNTER → 2025-04-30 | Outpatient (CLI) | payer OTHER | LOC: M PLAIMG 06:40 | PROVIDERS: ATTEND Student in an Organized Health Care Education/Training Program | DX: M54.2 Cervicalgia (principal) ==